=== PATIENT | male | born 1995 | race Caucasian/White ===

== ENCOUNTER 2018-10-26 03:12 | Emergency (ER) | payer BC ==
[2018-10-26 03:35] VITALS: BP 129/82; PULSE 74; RESP 12; TEMP 97.8; O2SAT 98
[2018-10-26] MEDS ORDERED: OFLOXACIN 0.3% OPHTHAL 1 DROP SOL ONE (04:07)
[2018-10-26] MEDS ORDERED: OFLOXACIN 0.3% OPHTHAL 1 DROP SOL OP ONE (04:12)
== END 2018-10-26 04:26 | disposition home or self-care (01) ==
LOC: ED 03:12
DX: S05.01XA Injury of conjunctiva and corneal abrasion without foreign body, right eye, initial encounter (principal); X58.XXXA Exposure to other specified factors, initial encounter
CPT/HCPCS: 99282; A9270-GY

== ENCOUNTER 2019-02-04 02:49 | Emergency (ER) | payer BC ==
[2019-02-04 03:06] VITALS: BP 133/81; PULSE 64; RESP 16; TEMP 97.8; O2SAT 100
[2019-02-04] MEDS ORDERED: [UNRECOGNIZED DRUG - OTHER] OP SCH (03:15)
[2019-02-04] MEDS ORDERED: BSS/BALANCED SALT SOL ONE (03:33)
[2019-02-04] MEDS ORDERED: SULFACETAMIDE 10% OPHTH 1 DROP SOL RIGHTEYE ONE (03:37)
[2019-02-04] MEDS ORDERED: BSS/BALANCED SALT SOL OP ONE (03:46)
== END 2019-02-04 03:51 | disposition home or self-care (01) ==
LOC: ED 02:49
DX: H57.11 Ocular pain, right eye (principal); T15.91XA Foreign body on external eye, part unspecified, right eye, initial encounter
CPT/HCPCS: 99282; A9270-GY